=== PATIENT | male | born 1995 | race Caucasian/White ===

== ENCOUNTER → 2019-12-21 | Emergency (ER) | payer MEDICARE, MEDICAID ==
[~2019-12-21] MED LIST: MORPHINE SULFATE 4 MG INJ IV ONE; Norflex 60 MG/2 ML IV ONE; TORAdol 30 mg Injection IM ONE; Zofran 4 MG/2 ML VIAL IV ONE
--- NOTE | 2019-12-21 09:09 | XRAY ---
Indication: Low back pain following lifting injury. Multiple contiguous axial images obtained through the lumbar spine. Sagittal and coronal reformatted images obtained. Comparison: Lumbar radiograph October 22, 2015. Axial images demonstrates broad-based disc bulge at the L4-S1 levels, greatest at the L5-S1. No acute fracture, suspicious bony lesions, or spinal canal stenosis. Facets are symmetric. Sagittal and coronal reformatted images demonstrates normal alignment with vertebral body heights/disc spaces maintained. No acute compression fracture or subluxation. Visualized noncontrasted soft tissues are unremarkable. Impression: 1. L4-S1 broad-based disc bulge better evaluated with outpatient MRI. 2. Remaining CT lumbar spine is negative. Comment: Preliminary interpretation was made by [facility]. No critical discrepancy.
== END ==
LOC: ED 01:23
DX: M54.5 Low back pain (principal); X50.9XXA Other and unspecified overexertion or strenuous movements or postures, initial encounter; Y93.9 Activity, unspecified; Y92.9 Unspecified place or not applicable; M25.552 Pain in left hip; M25.551 Pain in right hip
CPT/HCPCS: 72131; J1885; J2270; J2360; J2405

== ENCOUNTER 2020-08-05 11:18 | Day surgery (SDC) | payer MEDICARE ==
--- NOTE | 2020-08-05 09:22 | HP ---
DATE OF SURGERY: 08/05/2020 HISTORY OF PRESENT ILLNESS: The patient is a 25 year-old with worse recently right upper quadrant pain, history of some nausea and vomiting, worse with fatty or spicy food. No change in bowel movements. Ultrasound showed cholelithiasis, acute exacerbation chronic cholecystitis symptomatic cholelithiasis. I feel he would benefit from cholecystectomy. PAST MEDICAL HISTORY: Schizophrenia. Chronic obstructive pulmonary disease. PAST SURGICAL HISTORY: He denies any prior surgical intervention. MEDICATIONS: Albuterol, benztropine, Caplyta, divalproex, dicyclomine, escitalopram, Invega, omeprazole, Paliperidone Extended Release, Prilosec [id number]. ALLERGIES: METADATE CD. FAMILY HISTORY: Chronic obstructive pulmonary disease. SOCIAL HISTORY: Smoker, denies alcohol abuse. REVIEW OF SYSTEMS: Fourteen systems reviewed pertinent for as noted above. No chest pain or palpitations. Other systems negative or noncontributory as above and per preadmission questionnaire. PHYSICAL EXAMINATION: GENERAL: No acute distress. HEENT: Sclerae nonicteric. NECK: No JVD. CHEST: Equal excursion, nonlabored breathing. CVS: Regular rate and rhythm. ABDOMEN: Soft, mild tenderness right upper quadrant. No peritoneal signs. EXTREMITIES: No significant edema. NEURO: Alert, oriented, moving extremities symmetrically. No gross motor deficits noted. PSYCH: Appropriate mood and affect. IMPRESSION: Acute exacerbation of symptomatic cholelithiasis, chronic cholecystitis. I feel the patient will benefit from cholecystectomy. He was shown the gallbladder pamphlet and risk sheet, explained the procedure in detail including but not limited to bleeding or infection, risk of trocar injury or hernia, risk of bowel, bladder or blood vessel injury, risk of bile leak, bile duct injury, retained stone or sludge possibly requiring further procedure either open or ERCP, general risk of anesthesia, deep venous thrombosis, pulmonary embolism, pneumonia, perioperative risk of aches, pains, bloating, constipation and/or loose stools possibly even chronic in nature. He understands and agrees to the planned procedure, will proceed with laparoscopic cholecystectomy with possible open as an outpatient.
[~2020-08-05 11:18] MED LIST changes: +Lactated Ringers 1,000 ML IV ONE; -MORPHINE SULFATE 4 MG INJ IV ONE; -Norflex 60 MG/2 ML IV ONE; +Sensorcaine 0.25% 10 ML ONE; -TORAdol 30 mg Injection IM ONE; -Zofran 4 MG/2 ML VIAL IV ONE
[2020-08-05] MEDS ORDERED: Lactated Ringers 1,000 ML IV SCH (11:30)
[2020-08-05] MEDS ORDERED: MEFOXIN 2 GM PREMIX** 2 GM/50 ML ML IV SCH (11:30)
[2020-08-05] MEDS ORDERED: MEFOXIN 2 GM PREMIX** 2 GM/50 ML ML IV ONE (11:35)
[2020-08-05] MEDS ORDERED: DUONEB 0.5-3 MG/3 ml Neb IH ONE ×2 (12:09→12:12)
[2020-08-05] MEDS ORDERED: DIPRIVAN 200 MG/20 ML IV ONE ×2 (13:31→14:25)
[2020-08-05] MEDS ORDERED: Versed 2 MG/2 ML Injection ONE (13:31)
[2020-08-05] MEDS ORDERED: TORAdol 30 mg Injection ONE (13:31)
[2020-08-05] MEDS ORDERED: Zemuron 100 MG/10 ML ONE ×2 (13:31→14:13)
[2020-08-05] MEDS ORDERED: Zofran 4 MG/2 ML VIAL ONE ×2 (13:31→15:01)
[2020-08-05] MEDS ORDERED: Xylocaine-Mpf 2% 5 Ml Vial ONE (13:31)
[2020-08-05] MEDS ORDERED: Decadron 4 MG INJ ONE (13:31)
[2020-08-05] MEDS ORDERED: BRIDION 200MG/2ML IV ONE (13:31)
[2020-08-05] MEDS ORDERED: SUBLIMAZE 100 MCG/2 ML ONE (13:31)
[2020-08-05] MEDS ORDERED: MORPHINE SULFATE 10 MG/ML ONE (15:01)
[2020-08-05] MEDS ORDERED: Hydromorphone 1 mg/ml Injection ONE (15:01)
[2020-08-05 16:14] VITALS: O2SAT 99
[2020-08-05 16:16] VITALS: BP 158/97; PULSE 88
--- NOTE | 2020-08-06 09:04 | OP ---
SURGERY DATE/TIME: 08/05/2020 1342 PREOPERATIVE DIAGNOSIS: Acute exacerbation symptomatic cholelithiasis, chronic cholecystitis. POSTOPERATIVE DIAGNOSIS: Acute exacerbation symptomatic cholelithiasis, chronic cholecystitis. PROCEDURE: Laparoscopic cholecystectomy. SURGEON: Dr. Malachi Owsald. ANESTHESIA: General. ESTIMATED BLOOD LOSS: Minimal. INDICATIONS: As noted above. Risks and benefits explained in detail but not limited to and consent obtained. DESCRIPTION OF PROCEDURE AND FINDINGS: The patient was taken to the operating room. General anesthesia induced. Abdomen prepped and draped in the usual sterile fashion. After official time out and no disagreement with planned procedure, a transverse incision made at the supraumbilical area. Fascia grasped and pulled upward. Veress needle inserted and tested with saline. Pneumoperitoneum accomplished insufflating opening pressure of 0-15. A 5 mm bladeless port and camera inserted without difficulty followed by two - 5 mm right upper quadrant ports and 11 mm epigastric port. The gallbladder had extensive fibrofatty inflammatory reaction. Dissecting posterior, lateral to anterior fashion slowly and carefully. One oozing anterior vein clipped and divided to allow access to the cystic duct/infundibular junction. The main cystic artery carefully isolated directly on the gallbladder wall clipped and dived this opened up the angle. The cystic duct/infundibular junction slowly and carefully well skeletonized until the critical view obtained both anteriorly and posteriorly. There were some oozing cystic vein branch off of it that required clipping. Otherwise again the critical view obtained anteriorly and posteriorly. Once this was accomplished, cystic duct clipped x3 and divided in the usual fashion. The gallbladder is slowly and carefully dissected free from its dense almost concrete attachments to the liver bed staying directly on the gallbladder wall clipping additional pulsatile oozing branch off the cystic artery directly on the gallbladder wall as necessary. Just prior to releasing from final attachments to the anterior edge of the liver, the liver bed re-inspected. Clips noted in place cystic duct and cystic artery stumps. No signs of any active bleeding or bile leakage. It was felt there was no benefit from drain placement. Gallbladder released from final attachments, placed in the provided sac by the hospital, pulled up into the epigastric wound where it was grasped and straightened a little bit allowing the bag and gallbladder to be pulled free and passed off. The fascial defect closed with puncture closure device with #1 Vicryl. Otherwise copious amount of irrigation accomplished lateral to the liver irrigating clear. Good hemostasis noted. Pneumoperitoneum decompressed. The wound irrigated out. Skin incision closed with 4-0 Vicryl. Steri-Strips and sterile dressing applied. 0.25% Marcaine local injected along the skin incision fascial defect. The patient tolerated the procedure well. There were no immediate complications. He was transferred to the recovery room in stable condition. Findings discussed with the family out in the waiting area.
== END 2020-08-05 16:15 | disposition home or self-care (01) ==
LOC: SDC 11:18
PROVIDERS: ATTEND Surgery
DX: K80.10 Calculus of gallbladder with chronic cholecystitis without obstruction (principal); J44.9 Chronic obstructive pulmonary disease, unspecified; Z79.899 Other long term (current) drug therapy
CPT/HCPCS: 94640; J0694; J1100; J1170; J1885; J2250; J2270; J2405; J2704; J3010; A9270-GY

== ENCOUNTER 2021-01-15 14:21 | Day surgery (SDC) | payer MEDICARE ==
[2021-01-15] MEDS ORDERED: Sodium Chloride 0.9(Preservative Free) 10 ML IJ ONE (14:22)
[2021-01-15] MEDS ORDERED: Depo-Medrol 40 MG/ML IM ONE (14:22)
[2021-01-15] MEDS ORDERED: DIPRIVAN 200 MG/20 ML IV ONE ×2 (17:07→17:12)
[2021-01-15] MEDS ORDERED: Lactated Ringers 1,000 ML IV ONE (18:20)
--- NOTE | 2021-01-15 21:19 | XRAY ---
Indication: Right L3-L4 and L5-S1 transforaminal TAMI. Intraoperative fluoroscopy provided for 45 seconds. Single digital spot image submitted for interpretation demonstrates posterior needle tips projecting over the expected right L3 and L5 nerve roots. Small amount of contrast injected for needle tip placement. Correlate with intraoperative findings/report.
--- NOTE | 2021-01-16 09:00 | XRAY ---
45 seconds fluoroscopy time in surgery for right L3-S1 transforaminal TAMI.
== END 2021-01-15 17:40 | disposition home or self-care (01) ==
LOC: SDC-PAIN 14:21
PROVIDERS: ATTEND Psychiatry & Neurology Pain Medicine
DX: M54.16 Radiculopathy, lumbar region (principal); Z79.899 Other long term (current) drug therapy
CPT/HCPCS: 64483; 64484; 72100; 77003; J1030; J2704; Q9966

== ENCOUNTER 2022-08-30 09:35 | Emergency (ER) | payer MEDICARE ==
[2022-08-30 09:42] VITALS: BP 150/102; PULSE 70; O2SAT 100
--- NOTE | 2022-08-30 10:30 | ERPHSYRPT ---
- History of Present Illness Time Seen by Provider: 08/30/22 10:07 Source: patient Exam Limitations: no limitations Patient Subjective Stated Complaint: Pt states "I have a bad tooth and it hurts really bad." Triage Nursing Assessment: Pt presented alert and oriented X 3, skin pwd. PT left lower jaw swolen and tender. Physician History: 47 years old male presented in the ER with chief complaint of left lower jaw pain for 2 weeks with gradual worsening, moderate intensity sharp pain with associated some swelling lately. Reports difficulty swallowing solid food and increased hot and cold sensitivities. No fever or chills reported. Timing/Duration: weeks (2) Severity: moderate ENT Location: dental Prearrival Treatment: over the counter meds Associated Symptoms: tooth pain Allergies/Adverse Reactions: methylphenidate HCl [From [employer]] Allergy (Severe, Verified 08/05/20 11:38) Swelling ADHD medication Home Medications: Albuterol 2.5 mg/3 ml Neb [Proventil 2.5 mg/3 ml Neb] 2.5 mg IH Q4H PRN PRN 07/16/20 [History] Benztropine Mesylate 1 mg PO DAILY PRN 07/16/20 [History] Dicyclomine HCl 10 mg PO TID 07/16/20 [History] Divalproex Sodium [Divalproex Sodium ER] 500 mg PO BID 07/16/20 [History] Escitalopram Oxalate 20 mg PO DAILY 07/16/20 [History] Lumateperone Tosylate [Caplyta] 42 mg PO DAILY 07/16/20 [History] Omeprazole Magnesium [Prilosec Otc] 20 mg PO DAILY 07/16/20 [History] Paliperidone [Invega] 3 mg PO HS 07/16/20 [History] Paliperidone [Paliperidone ER] 9 mg PO DAILY 07/16/20 [History] clonazePAM [Clonazepam] 1 mg PO BID 07/16/20 [History] Hx Tetanus, Diphtheria Vaccination/Date Given: Yes Hx Influenza Vaccination/Date Given: No Hx Pneumococcal Vaccination/Date Given: No Immunizations Up to Date: Yes Travel Risk - International Travel Have you traveled outside of the country in past 3 weeks: No - Coronavirus Screening Are you exhibiting any of the following symptoms?: No Close contact with a COVID-19 positive Pt in past 14-21 Days: No - Vaccine Status Have you recieved a Covid-19 vaccination: No - Review of Systems Constitutional: No Symptoms Eyes: No Symptoms Ears, Nose, & Throat: Mouth Swelling Respiratory: No Symptoms Cardiac: No Symptoms Musculoskeletal: No Symptoms Skin: No Symptoms Neurological: No Symptoms Hematologic/Lymphatic: No Symptoms Immunological/Allergic: No Symptoms - Past Medical History Pertinent Past Medical History: Yes Neurological History: Other ENT History: No Pertinent History Cardiac History: Hypertension Respiratory History: Asthma, Sleep Apnea Endocrine Medical History: No Pertinent History Musculoskeletal History: Other GI Medical History: GERD History: No Pertinent History Psycho-Social History: Bipolar Male Reproductive Disorders: No Pertinent History Other Medical History: shortness of breath, wheezing, solomon schlader- muscle disorder, SCHIZOEFFECT, HALLUNATIONS, ANGER DISORDER, HEARS VOICES, PTSD NIGHTMARES - Past Surgical History Past Surgical History: Yes Neuro Surgical History: No Pertinent History Cardiac: No Pertinent History Respiratory: No Pertinent History Gastrointestinal: Cholecystectomy Genitourinary: No Pertinent History Musculoskeletal: No Pertinent History Male Surgical History: No Pertinent History Other Surgical History: sutures inside of fingers. dental surgery - Social History Smoking Status: Current every day smoker How long have you smoked: 14 years Exposure to second hand smoke: Yes Drug Use: marijuana Patient Lives Alone: No - Nursing Vital Signs Nursing Vital Signs: Initial Vital Signs Temperature 96.7 F 08/30/22 09:38 Pulse Rate 70 08/30/22 09:38 Respiratory Rate 20 08/30/22 09:38 Blood Pressure 150/102 08/30/22 09:38 O2 Sat by Pulse Oximetry 100 08/30/22 09:38 Pain Scale Pain Intensity 10 - Physical Exam General Appearance: no apparent distress, alert Eye Exam: bilateral eye: normal inspection, PERRL, EOMI Ear Exam: bilateral ear: auricle normal, canal normal, TM normal Nasal Exam: normal inspection Throat Exam: normal, pharynx normal, dental tenderness (Left lower molar with dental caries, broken. Minimal gingival swelling. No fluctuation.) Neck Exam: normal inspection, non-tender, supple, full range of motion Cardiovascular/Respiratory Exam: chest non-tender, normal breath sounds, regular rate/rhythm Neurologic Exam: alert, oriented x 3, cooperative, finish carpenter II-XII nml as tested Skin Exam: normal color SpO2 Interpretation: normal SpO2: 100 O2 Delivery: Room Air - Progress Progress: unchanged Progress Note: 08/30/22 10:28 47 years old male presented in the ER with chief complaint of left lower jaw pain for 2 weeks with gradual worsening, moderate intensity sharp pain with associated some swelling lately. Reports difficulty swallowing solid food and increased hot and cold sensitivities. No fever or chills reported. Offered pain medicine which she declined. Patient does not have full-blown abscess as of now, does have periodontal disease and gingival swelling. Started on Augmentin. Recommended NSAIDs for pain relief. Outpatient dental follow-up recommended. Discussed signs/symptoms of worsening needing return to ER which she seems understanding. Stable for discharge. Counseled pt/family regarding: diagnosis, need for follow-up Medical Desision Making - Risk of complications Low Risk: Low risk of morbidity from additional dx testing or treatment The pt has a mod risk of morbidity or mortality based on: Need for prescription drug management - Departure Departure Disposition: Home Clinical Impression: Dental infection Condition: Good Critical Care Time: No Referrals: KANDIS JEFFERSON [Primary Care Provider] - Follow up with PCP 2 days Instructions: Tooth Abscess (DC), Dental Pain (DC) Additional Instructions: Follow-up with primary care and your dentist for reevaluation. Take Tylenol/ibuprofen as needed. Continue with antibiotics. Return to ER for any worsening. Prescriptions: Ibuprofen 600 mg PO Q6HPRN PRN 10 Days #20 tablet PRN Reason: Pain Amox Tr/Potass Clav. 875 mg [Augmentin 875-125 Tablet] 875 mg PO BID #14 tablet
== END 2022-08-30 10:37 | disposition home or self-care (01) ==
LOC: ED 09:35
DX: K04.7 Periapical abscess without sinus (principal); K08.89 Other specified disorders of teeth and supporting structures; I10 Essential (primary) hypertension; Z79.899 Other long term (current) drug therapy; Z28.310 Unvaccinated for COVID-19; Z72.0 Tobacco use
CPT/HCPCS: 99281

== ENCOUNTER 2023-01-07 16:12 | Emergency (ER) | payer MEDICARE ==
--- NOTE | 2023-01-07 16:21 | ERPHSYRPT ---
- History of Present Illness Time Seen by Provider: 01/07/23 16:20 Source: patient Exam Limitations: no limitations Physician History: This is a 27-year-old white male patient Dr. Miguel who has had a toothache in the left lower molar region with associated left mandibular swelling for just over 2 weeks. He has had 2 rounds of amoxicillin. He is into day 3 of the second round. Patient has seen an oral surgeon to have his teeth extracted. However, it was found that they do not accept his insurance and he is continuing to look for an oral surgeon that accepts his insurance. Patient has a history of seizure disorder, gastroesophageal reflux disease, hypertension, bipolar disorder and asthma. Patient does see a pain specialist, Dr. Marcano. Patient has not had a fever. He does not have any difficulty swallowing and has no difficulty breathing. Timing/Duration: gradual onset Severity: mild ENT Location: dental (To moderate left lower molar with left mandibular swelling) Prearrival Treatment: prescription meds (Amoxicillin and Tylenol) Associated Symptoms: tooth pain (Left lower molars) Allergies/Adverse Reactions: methylphenidate HCl [From [employer]] Allergy (Severe, Verified 01/07/23 16:23) Swelling ADHD medication Home Medications: Albuterol 2.5 mg/3 ml Neb [Proventil 2.5 mg/3 ml Neb] 2.5 mg IH Q4H PRN PRN 07/16/20 [History] Dicyclomine HCl 10 mg PO TID 07/16/20 [History] Divalproex Sodium [Divalproex Sodium ER] 500 mg PO BID 07/16/20 [History] Escitalopram Oxalate 20 mg PO DAILY 07/16/20 [History] Lumateperone Tosylate [Caplyta] 42 mg PO DAILY 07/16/20 [History] Omeprazole Magnesium [Prilosec Otc] 20 mg PO DAILY 07/16/20 [History] Paliperidone [Invega] 3 mg PO HS 07/16/20 [History] Paliperidone [Paliperidone ER] 9 mg PO DAILY 07/16/20 [History] Amoxicillin 500 mg PO DAILY 01/07/23 [History] Gabapentin 300 mg PO BID 01/07/23 [History] Naproxen 500 mg PO BID 01/07/23 [History] Pravastatin Sodium 20 mg PO DAILY 01/07/23 [History] Hx Tetanus, Diphtheria Vaccination/Date Given: Yes Hx Influenza Vaccination/Date Given: No Hx Pneumococcal Vaccination/Date Given: No Travel Risk - International Travel Have you traveled outside of the country in past 3 weeks: No - Coronavirus Screening Are you exhibiting any of the following symptoms?: No Close contact with a COVID-19 positive Pt in past 14-21 Days: No - Vaccine Status Have you recieved a Covid-19 vaccination: No - Review of Systems Constitutional: No Symptoms Eyes: No Symptoms Ears, Nose, & Throat: Other (Left lower molar pain with left) Respiratory: No Symptoms ( mandibular swelling) Cardiac: No Symptoms Abdominal/Gastrointestinal: No Symptoms Genitourinary Symptoms: No Symptoms Musculoskeletal: No Symptoms Skin: No Symptoms Neurological: No Symptoms Psychological: No Symptoms Endocrine: No Symptoms Hematologic/Lymphatic: No Symptoms Immunological/Allergic: No Symptoms All Other Systems: Reviewed and Negative - Past Medical History Pertinent Past Medical History: Yes Neurological History: Other ENT History: No Pertinent History Cardiac History: Hypertension Respiratory History: Asthma, Sleep Apnea Endocrine Medical History: No Pertinent History Musculoskeletal History: Other GI Medical History: GERD History: No Pertinent History Psycho-Social History: Bipolar Male Reproductive Disorders: No Pertinent History Other Medical History: shortness of breath, wheezing, solomon schlader- muscle disorder, SCHIZOEFFECT, HALLUNATIONS, ANGER DISORDER, HEARS VOICES, PTSD NIGHTMARES - Past Surgical History Past Surgical History: Yes Neuro Surgical History: No Pertinent History Cardiac: No Pertinent History Respiratory: No Pertinent History Gastrointestinal: Cholecystectomy Genitourinary: No Pertinent History Musculoskeletal: No Pertinent History Male Surgical History: No Pertinent History Other Surgical History: sutures inside of fingers. dental surgery - Social History Smoking Status: Current every day smoker How long have you smoked: 14 years Exposure to second hand smoke: Yes Drug Use: marijuana Patient Lives Alone: No - Nursing Vital Signs Nursing Vital Signs: Initial Vital Signs Temperature 97.9 F 01/07/23 16:19 Pulse Rate 64 01/07/23 16:19 Respiratory Rate 17 01/07/23 16:19 Blood Pressure 167/113 01/07/23 16:19 O2 Sat by Pulse Oximetry 99 01/07/23 16:19 Pain Scale Pain Intensity 10 - Physical Exam General Appearance: no apparent distress, alert Eye Exam: bilateral eye: normal inspection, PERRL, EOMI, abnormal EOM Ear Exam: bilateral ear: auricle normal Nasal Exam: normal inspection Throat Exam: dental tenderness (Left lower), mandibular swelling (Left lower) Neck Exam: normal inspection ( molar pain), non-tender, supple, full range of motion, No lymphadenopathy (R), No lymphadenopathy (L) Cardiovascular/Respiratory Exam: chest non-tender, no respiratory distress Abdominal Exam: non-tender Neurologic Exam: alert, oriented x 3, cooperative, head of acquisitions II-XII nml as tested, normal mood/affect, nml cerebellar function, nml station & gait, sensation nml Skin Exam: normal color, warm, dry SpO2 Interpretation: normal O2 Delivery: Room Air - Course Nursing assessment & vital signs reviewed: Yes Ordered Tests: Medication Summary Discontinued Medications Generic Name Dose Route Start Last Admin Trade Name Freq PRN Reason Stop Dose Admin Cephalexin HCl 500 mg 01/07/23 16:50 Cephalexin Mh500 Mg Capsule PO 01/07/23 16:51 STAT ONE Oxycodone/Acetaminophen 1 tab 01/07/23 16:50 Oxycodone / Apap 10/325 Mg 1 Tablet PO 01/07/23 16:51 STAT STA - Progress Progress: unchanged, pain not gone completely Progress Note: 01/07/23 17:00 This patient's medical issue is 1 of low complexity. Level complexity in the work-up performed is based on review of the patient's past medical history, review the patient's medication list, review the patient's drug allergy list, history present illness and physical findings on examination. This patient does not require laboratory radiographic studies. We will have the patient's stop his amoxicillin. We will change his medication to Keflex 500 mg 3 times a day for 7 days. Patient is to add 600 mg orally 3 times a day of ibuprofen with food for the next 5 days. Patient is to locate an oral surgeon for further evaluation management. Counseled pt/family regarding: diagnosis, need for follow-up Medical Desision Making - Independent Historian Additional History obtained from: Mother - Diagnostic Testing Diagnostic test were ordered, analyzed, and reviewed by me: No - Risk of complications The pt has a mod risk of morbidity or mortality based on: Need for prescription drug management - Departure Departure Disposition: Home Clinical Impression: Dental infection Condition: Stable Critical Care Time: No Referrals: KANDIS MIGUEL [Primary Care Provider] - Follow up/PCP as directed Additional Instructions: Stop your amoxicillin. Start the Keflex antibiotics. Use Tylenol and ibuprofen for pain control as discussed. Call an oral surgeon for further evaluation and management. Prescriptions: Cephalexin Mh 500 mg [Keflex 500 mg] 500 mg PO TID #21 cap
[2023-01-07 16:32] VITALS: RESP 17; TEMP 97.9
[2023-01-07] MEDS ORDERED: OXYCODONE-ACETAMINOPHEN 10-325 PO STA (16:50)
[2023-01-07] MEDS ORDERED: KEFLEX 500 MG PO ONE (16:50)
[2023-01-07] MEDS ORDERED: OXYCODONE-ACETAMINOPHEN 10-325 ONE (17:00)
[2023-01-07] MEDS ORDERED: KEFLEX 500 MG ONE (17:00)
[2023-01-07 17:13] VITALS: BP 135/103; PULSE 82; O2SAT 98
== END 2023-01-07 17:12 | disposition home or self-care (01) ==
LOC: ED 16:12
DX: K04.7 Periapical abscess without sinus (principal); K08.89 Other specified disorders of teeth and supporting structures; I10 Essential (primary) hypertension; Z79.899 Other long term (current) drug therapy; Z28.310 Unvaccinated for COVID-19; Z72.0 Tobacco use
CPT/HCPCS: 99282; A9270-GY

== ENCOUNTER 2023-02-17 12:27 | Day surgery (SDC) | payer MEDICARE ==
[2023-02-17] MEDS ORDERED: Sodium Chloride 0.9(Preservative Free) 10 ML IJ ONE (12:28)
[2023-02-17] MEDS ORDERED: Decadron 4 MG INJ IV ONE (12:28)
[2023-02-17] MEDS ORDERED: XYLOCAINE-MPF 1% 5ML SDV IJ ONE (12:28)
[2023-02-17] MEDS ORDERED: Versed 2 MG/2 ML Injection ONE (13:10)
[2023-02-17] MEDS ORDERED: Pepcid 20 MG VIAL IV ONE (13:10)
[2023-02-17] MEDS ORDERED: Reglan 10 MG/2 ML ONE (13:10)
[2023-02-17] MEDS ORDERED: DIPRIVAN 200 MG/20 ML IV ONE ×2 (14:02→14:12)
[2023-02-17] MEDS ORDERED: Lactated Ringers 1,000 ML IV ONE (14:35)
--- NOTE | 2023-02-17 15:04 | XRAY ---
Indication: Right L4-S1 transforaminal TAMI. Intraoperative fluoroscopy provided for 28 seconds. 6 digital spot image submitted for interpretation demonstrates posterior needle tips projecting over the expected right L4 and L5 nerve roots. Small amount of contrast injected for needle tip placement. Correlate with intraoperative findings/report.
--- NOTE | 2023-02-17 15:04 | XRAY ---
Indication: Right piriformis injection. Intraoperative fluoroscopy provided for 9 seconds. Single digital spot image submitted for interpretation demonstrates posterior needle tip projecting over the right piriformis. Small amount of contrast injected for needle tip placement. Correlate with intraoperative findings/report.
--- NOTE | 2023-02-17 15:06 | XRAY ---
9 seconds of fluoroscopy was used in surgery for a right piriformis injection.
--- NOTE | 2023-02-17 15:07 | XRAY ---
28 seconds of fluoroscopy was used in surgery for a right L4-S1 transforaminal TAMI.
== END 2023-02-17 14:35 | disposition home or self-care (01) ==
LOC: SDC-PAIN 12:27
PROVIDERS: ATTEND Psychiatry & Neurology Pain Medicine
DX: M79.18 Myalgia, other site (principal); M54.16 Radiculopathy, lumbar region; Z79.899 Other long term (current) drug therapy
CPT/HCPCS: 20552; 64483; 64484; 72100; 72170; 77002; 77003; J1100; J2250; J2704; Q9966